=== PATIENT | male | born 1930 ===

== ENCOUNTER 2017-11-17 07:23 | Day surgery (SDC) | payer BC ==
[~2017-11-17] VITALS: Ht 175.3 cm; Wt 71.7 kg
[~2017-11-17 07:23] MED LIST: AMLODIPINE BESY10 MG PO; ASPIR-LOW81 MG PO; ICAPS TABLET1 EACH PO; LATANOPROST2.5 ML OPTH; MULTIPLE VITAM1 EAC2 PO; SIMVASTATIN40 MG PO; VITAMIN D32000 UNI1 PO
[2017-11-30] MEDS ORDERED: HYDROCHLOROTH12.5 MG PO (10:26)
== END 2017-11-17 09:16 | disposition home or self-care (01) ==
LOC: DS 07:23 → OPS 07:23 → DS 08:30 → OPS 09:16
PROVIDERS: Ophthalmology
PROC: 08RJ3JZ Replacement of Right Lens with Synthetic Substitute, Percutaneous Approach (ICD-10-PCS; principal; 2017-11-17 08:30)
DX: H25.13 Age-related nuclear cataract, bilateral (principal); I10 Essential (primary) hypertension; E78.00 Pure hypercholesterolemia, unspecified; Z79.82 Long term (current) use of aspirin; Z79.899 Other long term (current) drug therapy; Z97.4 Presence of external hearing-aid
CPT/HCPCS: J2250

== ENCOUNTER 2017-12-01 07:43 | Day surgery (SDC) | payer BC ==
[~2017-12-01] VITALS: Ht 175.3 cm; Wt 71.7 kg
[~2017-12-01 07:43] MED LIST changes: +HYDROCHLOROTH12.5 MG PO
[2017-12-01] MEDS ORDERED: ISTALOL2.5 ML OPTH (08:45)
== END 2017-12-01 09:46 | disposition home or self-care (01) ==
LOC: DS 07:43 → OPS 07:43 → DS 09:00 → OPS 09:00
PROVIDERS: Ophthalmology
PROC: 08RK3JZ Replacement of Left Lens with Synthetic Substitute, Percutaneous Approach (ICD-10-PCS; principal; 2017-12-01 09:00)
DX: H25.12 Age-related nuclear cataract, left eye (principal); E78.00 Pure hypercholesterolemia, unspecified; I10 Essential (primary) hypertension; G25.0 Essential tremor; I25.2 Old myocardial infarction; Z97.4 Presence of external hearing-aid; Z79.82 Long term (current) use of aspirin; Z95.5 Presence of coronary angioplasty implant and graft; Z79.899 Other long term (current) drug therapy
CPT/HCPCS: J2250